=== PATIENT | male | born 1955 | race Caucasian/White ===

== ENCOUNTER 2018-12-03 12:01 | Inpatient (IN) | payer MEDICAID ==
[~2018-12-03] VITALS: Ht 182.9 cm; Wt 109.4 kg
[2018-12-03 13:59] LABS: BASOPHILS % 0.9 % (0.0-2.0); EOSINOPHILS % 2.2 % (0.0-5.0); HEMATOCRIT. 59.6 % (42.0-52.0); MEAN CORPUSCULAR HEMOGLOBIN 32.5 pg (28.0-32.0); MEAN CORPUSCULAR VOLUME 96.7 fL (80.0-94.0); MEAN PLATELET VOLUME 8.1 fl (7.4-10.4); NEUTROPHILS % 69.9 % (40.0-76.0); PLATELET 163 x1000/uL (130-400); RED BLOOD CELL COUNT 6.16 mill/uL (4.7-6.1); RED CELL DISTRIBUTION WIDTH 15.6 % (11.6-14.6)
[2018-12-03 14:06] LABS: CHLORIDE 106 mEq/L (98-107)
[2018-12-03 14:10] LABS: D-DIMER 0.75 mg/L FEU (<0.50); PARTIAL THROMBOPLASTIN TIME 28.8 sec (23.4-31.0)
[2018-12-03] MEDS ORDERED: DILTIAZEM HCL 5MG/ML 5ML VIAL IV ONE (14:30)
[2018-12-03] MEDS ORDERED: DILTIAZEM HCL 5MG/ML 5ML VIAL IV PRN ×2 (14:45→23:00)
[2018-12-03] MEDS ORDERED: CLONIDINE 0.1MG TABLET PO PRN (14:45)
[2018-12-03] MEDS ORDERED: ALBUTEROL (0.083%) 2.5MG/3ML NEB HHN STA (15:49)
[2018-12-03] MEDS ORDERED: IPRATROPIUM BROMIDE (0.02%) 0.5MG/2.5ML NEB HHN STA (15:49)
[2018-12-03] MEDS ORDERED: MAGNESIUM/ALUMINUM HYDROXIDE/SIMETHICONE 30ML UDC PO PRN (16:15)
[2018-12-03] MEDS ORDERED: DOCUSATE SODIUM 100MG CAPSULE PO PRN (16:15)
[2018-12-03] MEDS ORDERED: ONDANSETRON HCL 4MG/2ML INJ IV PRN (16:15)
[2018-12-03] MEDS ORDERED: ACETAMINOPHEN 325MG TABLET PO PRN (16:15)
[2018-12-03] MEDS ORDERED: HYDROCODONE/ACETAMINOPHEN 5/325MG TABLET PO PRN (16:15)
[2018-12-03] MEDS ORDERED: GUAIFENESIN 200MG/10ML SUGAR FREE UDC PO PRN (16:15)
[2018-12-03] MEDS ORDERED: DIPHENHYDRAMINE 50MG/ML VIAL IV PRN (16:15)
[2018-12-03 16:51] LABS: PHOSPHORUS 2.6 mg/dL (2.5-4.9)
[2018-12-03] MEDS ORDERED: DILTIAZEM HCL 125 MG in DEXT 5% WATER 100 ML IV ONE ×2 (17:30→17:45)
[2018-12-03 17:32] LABS: BG BASE EXCESS 3.3 mmol/L (-2.0-2.0); BG CARBOXYHEMOGLOBIN 4.8 % (0.5-1.5); BG DEOXYHEMOGLOBIN 8.7 % (0.0-5.0); BG FRACTION INSPIRED OXYGEN 50; BG HCO3 ACT 28.8 mmol/L (22.0-26.0); BG METHEMOGLOBIN 0.3 % (0.0-1.5); BG OXYGEN SATURATION 90.8 % (92.0-98.5); BG OXYHEMOGLOBIN 86.2 % (94.0-97.0); BG PH 7.415 (7.350-7.450); BG PO2 57.2 mmHg (75.0-100.0); BG SAMPLE SITE RIGHT BRACHIAL; BG TOTAL HEMOGLOBIN 20.6 g/dL (12.0-18.0)
[2018-12-03] MEDS ORDERED: DILTIAZEM HCL 30MG TABLET PO NR (17:45)
[2018-12-03] MEDS: DILTIAZEM HCL 30MG TABLET PO SCH (18:00)
[2018-12-03 22:55] VITALS: BP 101/71
[2018-12-04] VITALS (21 sets, daily range): BP systolic 88–142; BP diastolic 15–98
[2018-12-04] MEDS ORDERED: TAMS-11 PO (01:06)
[2018-12-04] MEDS ORDERED: FINA5TAB3 PO (01:06)
[2018-12-04] MEDS: ENOXAPARIN 120MG/0.8ML SYR SUBCUT SCH ×2 (02:59→14:48)
[2018-12-04] MEDS ORDERED: TIOT18CA3 IH (03:45)
[2018-12-04] MEDS ORDERED: CLOB15OI3 TP (03:45)
[2018-12-04] MEDS ORDERED: ATROV INH (03:45)
[2018-12-04] MEDS ORDERED: ATOR20TA65 MT (03:45)
[2018-12-04] MEDS ORDERED: CARV6.2548 PO (03:45)
[2018-12-04] MEDS ORDERED: FURO-151 PO (03:45)
[2018-12-04] MEDS ORDERED: ASPI-1393 PO (03:45)
[2018-12-04] MEDS ORDERED: LISI-604 MT (03:45)
[2018-12-04] MEDS ORDERED: AMLO5TAB88 MT (03:45)
[2018-12-04] MEDS: DILTIAZEM HCL 30MG TABLET PO SCH ×2 (06:00)
[2018-12-04] MEDS ORDERED: CLONIDINE 0.1MG TABLET PO PRN (09:45)
[2018-12-04] MEDS: DILTIAZEM HCL 90MG TABLET PO SCH ×2 (09:54→19:12)
[2018-12-04 10:12] LABS: BASOPHILS % 0.9 % (0.0-2.0); HEMATOCRIT. 53.6 % (42.0-52.0); HEMOGLOBIN. 17.9 g/dL (14.0-18.0); LYMPHOCYTES % 12.4 % (20.0-50.0); MEAN CORPUSCULAR HEMOGLOBIN 32.5 pg (28.0-32.0); MEAN CORPUSCULAR VOLUME 97.5 fL (80.0-94.0); MEAN PLATELET VOLUME 7.8 fl (7.4-10.4); MONOCYTES % 9.3 % (2.0-8.0); NEUTROPHILS % 74.4 % (40.0-76.0); PLATELET 134 x1000/uL (130-400); RED CELL DISTRIBUTION WIDTH 15.6 % (11.6-14.6)
[2018-12-04 10:27] LABS: CHLORIDE 106 mEq/L (98-107)
[2018-12-04] MEDS: FINASTERIDE 5MG TABLET PO SCH (12:48)
[2018-12-04] MEDS: TAMSULOSIN HCL 0.4MG SR CAPSULE PO SCH (12:48)
[2018-12-04] MEDS: IPRATROPIUM/ALBUTEROL 0.5-3(2.5)MG/3ML NEB HHN PRN (20:24)
[2018-12-04 21:54] LABS: *AMPHETAMINES SCREEN URINE NEGATIVE (NEGATIVE); *BARBITURATES SCREEN URINE NEGATIVE (NEGATIVE); *BENZODIAZEPINES SCREEN URINE NEGATIVE (NEGATIVE)
[2018-12-04 21:55] LABS: *COCAINE SCREEN URINE NEGATIVE (NEGATIVE); CANNABINOID URINE SCREEN NEGATIVE (NEGATIVE); METHADONE URINE SCREEN NEGATIVE (NEGATIVE); OPIATES URINE SCREEN NEGATIVE (NEGATIVE); PHENCYCLIDINE URINE SCREEN NEGATIVE (NEGATIVE)
[2018-12-05] VITALS (13 sets, daily range): BP systolic 103–137; BP diastolic 50–93
[2018-12-05] MEDS: DILTIAZEM HCL 90MG TABLET PO SCH ×4 (00:08→17:46)
[2018-12-05] MEDS: IPRATROPIUM/ALBUTEROL 0.5-3(2.5)MG/3ML NEB HHN PRN ×3 (01:08→20:53)
[2018-12-05] MEDS: ENOXAPARIN 120MG/0.8ML SYR SUBCUT SCH ×2 (02:08→15:29)
[2018-12-05] MEDS: FINASTERIDE 5MG TABLET PO SCH (09:27)
[2018-12-05] MEDS: TAMSULOSIN HCL 0.4MG SR CAPSULE PO SCH (09:28)
[2018-12-06] VITALS (16 sets, daily range): BP systolic 102–126; BP diastolic 33–88
[2018-12-06] MEDS: DILTIAZEM HCL 90MG TABLET PO SCH ×4 (00:17→17:57)
[2018-12-06] MEDS: ENOXAPARIN 120MG/0.8ML SYR SUBCUT SCH ×2 (01:53→13:22)
[2018-12-06] MEDS: IPRATROPIUM/ALBUTEROL 0.5-3(2.5)MG/3ML NEB HHN PRN (04:43)
[2018-12-06 06:32] LABS: CHLORIDE 105 mEq/L (98-107)
[2018-12-06 06:38] LABS: BASOPHILS % 0.5 % (0.0-2.0); EOSINOPHILS % 2.4 % (0.0-5.0); HEMATOCRIT. 49.9 % (42.0-52.0); HEMOGLOBIN. 16.7 g/dL (14.0-18.0); LYMPHOCYTES % 13.2 % (20.0-50.0); MEAN CORPUSCULAR HEMOGLOBIN 32.7 pg (28.0-32.0); MEAN CORPUSCULAR VOLUME 97.7 fL (80.0-94.0); MEAN PLATELET VOLUME 8.1 fl (7.4-10.4); MONOCYTES % 10.8 % (2.0-8.0); NEUTROPHILS % 73.1 % (40.0-76.0); PLATELET 121 x1000/uL (130-400); RED BLOOD CELL COUNT 5.11 mill/uL (4.7-6.1)
[2018-12-06] MEDS: TAMSULOSIN HCL 0.4MG SR CAPSULE PO SCH (08:05)
[2018-12-06] MEDS: FINASTERIDE 5MG TABLET PO SCH (08:05)
[2018-12-06 14:52] LABS: BG BASE EXCESS 3.2 mmol/L (-2.0-2.0); BG CARBOXYHEMOGLOBIN 1.1 % (0.5-1.5); BG DEOXYHEMOGLOBIN 11.3 % (0.0-5.0); BG FRACTION INSPIRED OXYGEN 21; BG HCO3 ACT 28.6 mmol/L (22.0-26.0); BG METHEMOGLOBIN 0.2 % (0.0-1.5); BG OXYGEN SATURATION 88.6 % (92.0-98.5); BG OXYHEMOGLOBIN 87.4 % (94.0-97.0); BG PCO2 45.6 mmHg (35.0-45.0); BG PH 7.415 (7.350-7.450); BG PO2 53.2 mmHg (75.0-100.0); BG SAMPLE SITE RIGHT RADIAL; BG VENT MODE ROOM AIR
[2018-12-06] MEDS: NICOTINE 21MG PATCH TD SCH (17:54)
[2018-12-06] MEDS: POTASSIUM CHLORIDE 10MEQ TABLET SR PO SCH (17:55)
[2018-12-06] MEDS: FUROSEMIDE 40MG TABLET PO SCH (17:55)
[2018-12-06] MEDS: APIXABAN 5 MG TABLET PO SCH (18:54)
[2018-12-06] MEDS: BUDESONIDE 0.5MG/2ML NEB HHN SCH (21:14)
[2018-12-06] MEDS: IPRATROPIUM BROMIDE (0.02%) 0.5MG/2.5ML NEB HHN SCH (21:14)
[2018-12-06] MEDS: GUAIFENESIN 600MG ER TABLET PO SCH (21:38)
[2018-12-07] VITALS (17 sets, daily range): BP systolic 106–159; BP diastolic 57–87
[2018-12-07] MEDS: DILTIAZEM HCL 90MG TABLET PO SCH ×4 (00:13→17:31)
[2018-12-07] MEDS: IPRATROPIUM BROMIDE (0.02%) 0.5MG/2.5ML NEB HHN SCH ×4 (02:07→20:22)
[2018-12-07] MEDS: APIXABAN 5 MG TABLET PO SCH ×2 (08:09→17:30)
[2018-12-07] MEDS: GUAIFENESIN 600MG ER TABLET PO SCH ×2 (08:09→20:18)
[2018-12-07] MEDS: POTASSIUM CHLORIDE 10MEQ TABLET SR PO SCH (08:09)
[2018-12-07] MEDS: FINASTERIDE 5MG TABLET PO SCH (08:09)
[2018-12-07] MEDS: FUROSEMIDE 40MG TABLET PO SCH (08:09)
[2018-12-07] MEDS: TAMSULOSIN HCL 0.4MG SR CAPSULE PO SCH (08:10)
[2018-12-07] MEDS: NICOTINE 21MG PATCH TD SCH (08:10)
[2018-12-07] MEDS: BUDESONIDE 0.5MG/2ML NEB HHN SCH ×2 (08:53→20:21)
[2018-12-07 08:58] LABS: BASOPHILS % 0.5 % (0.0-2.0); HEMATOCRIT. 51.3 % (42.0-52.0); HEMOGLOBIN. 17.1 g/dL (14.0-18.0); LYMPHOCYTES % 11.5 % (20.0-50.0); MEAN CORPUSCULAR HEMOGLOBIN 32.5 pg (28.0-32.0); MEAN CORPUSCULAR VOLUME 97.6 fL (80.0-94.0); MONOCYTES % 8.7 % (2.0-8.0); NEUTROPHILS % 76.3 % (40.0-76.0); PLATELET 120 x1000/uL (130-400); RED BLOOD CELL COUNT 5.26 mill/uL (4.7-6.1); RED CELL DISTRIBUTION WIDTH 15.4 % (11.6-14.6)
[2018-12-07 09:03] LABS: INR 1.2
[2018-12-07 09:04] LABS: CHLORIDE 105 mEq/L (98-107)
[2018-12-07 09:13] LABS: LDL CHOLESTEROL 54 mg/dL (5-100)
[2018-12-07 09:15] LABS: CREATINE KINASE 18 IU/L (39-308); HDL CHOLESTEROL 39 mg/dL (40-59)
[2018-12-07 09:18] LABS: CREATINE KINASE MB FRACTION < 1.0 ng/mL (0.5-3.6)
[2018-12-07] MEDS ORDERED: ASPI-1158 PO (14:11)
[2018-12-07] MEDS ORDERED: DILT90TA2 PO (15:55)
[2018-12-07] MEDS ORDERED: NICO-682 TD (15:57)
== END 2018-12-07 21:04 | disposition home or self-care (01) | DRG 133 ==
LOC: ER 12:01 → EDBEDREQ 14:59 → ENRESERV 16:43 → CANRESERV 16:43 → EDBEDREQSVC 17:26 → ENRESERV 20:10 → ER 22:52 → 8WST 12-04 00:40 → 3WST 12-04 02:09
PROVIDERS: ADMIT Internal Medicine; ATTEND Internal Medicine
PROC: 5A09357 Assistance with Respiratory Ventilation, Less than 24 Consecutive Hours, Continuous Positive Airway Pressure (ICD-10-PCS; principal; 2018-12-04)
PROC: 5A09357 Assistance with Respiratory Ventilation, Less than 24 Consecutive Hours, Continuous Positive Airway Pressure (ICD-10-PCS; 2018-12-05)
PROC: 5A09357 Assistance with Respiratory Ventilation, Less than 24 Consecutive Hours, Continuous Positive Airway Pressure (ICD-10-PCS; 2018-12-06)
PROC: 5A09357 Assistance with Respiratory Ventilation, Less than 24 Consecutive Hours, Continuous Positive Airway Pressure (ICD-10-PCS; 2018-12-07)
DX: J96.21 Acute and chronic respiratory failure with hypoxia (principal); I50.23 Acute on chronic systolic (congestive) heart failure; D69.6 Thrombocytopenia, unspecified; I42.9 Cardiomyopathy, unspecified; D75.1 Secondary polycythemia; I48.19 Other persistent atrial fibrillation; I11.0 Hypertensive heart disease with heart failure; J44.1 Chronic obstructive pulmonary disease with (acute) exacerbation; N40.0 Benign prostatic hyperplasia without lower urinary tract symptoms; J96.22 Acute and chronic respiratory failure with hypercapnia; F17.200 Nicotine dependence, unspecified, uncomplicated; G47.30 Sleep apnea, unspecified; E78.5 Hyperlipidemia, unspecified; E03.9 Hypothyroidism, unspecified; F17.210 Nicotine dependence, cigarettes, uncomplicated; F41.9 Anxiety disorder, unspecified; Z79.01 Long term (current) use of anticoagulants; Z79.899 Other long term (current) drug therapy; Z98.1 Arthrodesis status; Z71.6 Tobacco abuse counseling
CPT/HCPCS: 36415; 36600; 71045; 80048; 80061; 80305; 82375; 82550; 82553; 82805; 83735; 83880; 84100; 84443; 84484; 85379; 93005; 93306; 93970; 94640; 94660; 97161; 99291; J1200; J1650; J3490; J7060; J7611; J7620; J7626

== ENCOUNTER 2019-03-30 17:33 | Inpatient (IN) | payer MEDICAID ==
[~2019-03-30] VITALS: Ht 182.9 cm; Wt 109.8 kg
[~2019-03-30 17:33] MED LIST: APIX5TAB MT; ATOR20TA65 MT; CARV6.2548 PO; CLOB15OI3 TP; DILT90TA2 PO; FINA5TAB3 PO; FURO-151 PO; LISI-604 MT; NICO-682 TD; TAMS-11 PO; TIOT18CA3 INH
[2019-03-30 18:53] LABS: BASOPHILS % 1.1 % (0.0-2.0); EOSINOPHILS % 3.1 % (0.0-5.0); HEMATOCRIT. 51.3 % (42.0-52.0); HEMOGLOBIN. 17.3 g/dL (14.0-18.0); LYMPHOCYTES % 13.2 % (20.0-50.0); MEAN CORPUSCULAR HEMOGLOBIN 32.9 pg (28.0-32.0); MEAN CORPUSCULAR VOLUME 97.6 fL (80.0-94.0); MEAN PLATELET VOLUME 7.7 fl (7.4-10.4); MONOCYTES % 10.9 % (2.0-8.0); NEUTROPHILS % 71.7 % (40.0-76.0); PLATELET 173 x1000/uL (130-400); RED BLOOD CELL COUNT 5.26 mill/uL (4.7-6.1); RED CELL DISTRIBUTION WIDTH 14.9 % (11.6-14.6)
[2019-03-30 18:59] LABS: CHLORIDE 108 mEq/L (98-107)
[2019-03-30] MEDS ORDERED: CARVEDILOL 6.25 MG TABLET PO ONE (20:00)
[2019-03-30] MEDS ORDERED: DILTIAZEM HCL 5MG/ML 5ML VIAL IV ONE (20:00)
[2019-03-30] MEDS ORDERED: DILTIAZEM HCL 90MG TABLET PO ONE (20:00)
[2019-03-30] MEDS ORDERED: FUROSEMIDE 40MG/4ML VIAL IVP ONE (20:00)
[2019-03-30] MEDS ORDERED: IPRATROPIUM/ALBUTEROL 0.5-3(2.5)MG/3ML NEB NEB PRN (22:00)
[2019-03-30] MEDS ORDERED: HYDROCODONE/ACETAMINOPHEN 5/325MG TABLET PO PRN (22:00)
[2019-03-30] MEDS ORDERED: MAGNESIUM/ALUMINUM HYDROXIDE/SIMETHICONE 30ML UDC PO PRN (22:00)
[2019-03-30] MEDS ORDERED: DILTIAZEM HCL 30MG TABLET PO PRN (22:00)
[2019-03-30] MEDS ORDERED: CLONIDINE 0.1MG TABLET PO PRN (22:00)
[2019-03-30] MEDS ORDERED: ONDANSETRON HCL 4MG/2ML INJ IV PRN (22:00)
[2019-03-30] MEDS ORDERED: GUAIFENESIN 200MG/10ML SUGAR FREE UDC PO PRN (22:00)
[2019-03-30] MEDS ORDERED: MORPHINE SULFATE 2 MG/ML CPJ (NOT FOR IM USE) IV PRN (22:30)
[2019-03-30 23:21] LABS: CREATINE KINASE 34 IU/L (39-308)
[2019-03-30 23:22] LABS: CREATINE KINASE MB FRACTION 1.2 ng/mL (0.5-3.6)
[2019-03-30 23:40] VITALS: BP 133/76
[2019-03-31] VITALS: BP 133/76
[2019-03-31] MEDS ORDERED: DILT120T13 PO (01:48)
[2019-03-31] MEDS: APIXABAN 5 MG TABLET PO SCH ×2 (02:30→16:41)
[2019-03-31 04:00] VITALS: BP 128/83
[2019-03-31 07:49] LABS: CHLORIDE 105 mEq/L (98-107)
[2019-03-31 08:00] VITALS: BP 144/97
[2019-03-31 08:02] LABS: CREATINE KINASE 30 IU/L (39-308); LDL CHOLESTEROL 43 mg/dL (5-100)
[2019-03-31 08:03] LABS: HDL CHOLESTEROL 39 mg/dL (40-59)
[2019-03-31 08:07] LABS: CREATINE KINASE MB FRACTION 1.1 ng/mL (0.5-3.6)
[2019-03-31 08:13] LABS: BASOPHILS % 0.7 % (0.0-2.0); EOSINOPHILS % 2.8 % (0.0-5.0); HEMATOCRIT. 49.2 % (42.0-52.0); LYMPHOCYTES % 13.5 % (20.0-50.0); MEAN CORPUSCULAR VOLUME 98.5 fL (80.0-94.0); MONOCYTES % 10.8 % (2.0-8.0); NEUTROPHILS % 72.2 % (40.0-76.0); RED CELL DISTRIBUTION WIDTH 14.9 % (11.6-14.6)
[2019-03-31] MEDS: CARVEDILOL 6.25 MG TABLET PO SCH ×2 (09:11→20:47)
[2019-03-31] MEDS: TAMSULOSIN HCL 0.4MG SR CAPSULE PO SCH (09:11)
[2019-03-31] MEDS: FINASTERIDE 5MG TABLET PO SCH (09:11)
[2019-03-31] MEDS: FUROSEMIDE 40MG/4ML VIAL IV SCH (09:12)
[2019-03-31 10:09] LABS: MEAN PLATELET VOLUME 7.7 fl (7.4-10.4); PLATELET 177 x1000/uL (130-400)
[2019-03-31 12:00] VITALS: BP 118/79
[2019-03-31 16:00] VITALS: BP 113/79
[2019-03-31] MEDS: NICOTINE 21MG PATCH TD SCH (16:42)
[2019-03-31 20:00] VITALS: BP 125/85
[2019-03-31] MEDS: IPRATROPIUM/ALBUTEROL 0.5-3(2.5)MG/3ML NEB HHN SCH (20:52)
[2019-03-31] MEDS: BUDESONIDE 0.5MG/2ML NEB HHN SCH (20:55)
[2019-04-01] VITALS (7 sets, daily range): BP systolic 97–135; BP diastolic 56–85
[2019-04-01] MEDS: IPRATROPIUM/ALBUTEROL 0.5-3(2.5)MG/3ML NEB HHN SCH ×2 (01:06→08:00)
[2019-04-01] MEDS: BUDESONIDE 0.5MG/2ML NEB HHN SCH ×2 (08:01→20:38)
[2019-04-01] MEDS: FINASTERIDE 5MG TABLET PO SCH (08:22)
[2019-04-01] MEDS: APIXABAN 5 MG TABLET PO SCH ×2 (08:29→18:28)
[2019-04-01] MEDS: FUROSEMIDE 40MG/4ML VIAL IV SCH (08:29)
[2019-04-01] MEDS: NICOTINE 21MG PATCH TD SCH (08:30)
[2019-04-01] MEDS: TAMSULOSIN HCL 0.4MG SR CAPSULE PO SCH (08:33)
[2019-04-01] MEDS: CARVEDILOL 6.25 MG TABLET PO SCH (08:42)
[2019-04-01] MEDS: DILTIAZEM HCL 60MG TABLET PO SCH ×2 (12:58→18:27)
[2019-04-01] MEDS ORDERED: DILTIAZEM HCL 30MG TABLET PO SCH (13:00)
[2019-04-01] MEDS: IPRATROPIUM BROMIDE (0.02%) 0.5MG/2.5ML NEB HHN SCH ×2 (15:05→20:38)
[2019-04-01] MEDS ORDERED: CARVEDILOL 3.125 MG TABLET PO SCH (21:00)
[2019-04-01] MEDS: CARVEDILOL 3.125 MG TABLET PO SCH (21:00)
[2019-04-02] VITALS: BP 122/80
[2019-04-02] MEDS: IPRATROPIUM BROMIDE (0.02%) 0.5MG/2.5ML NEB HHN SCH ×4 (01:06→19:54)
[2019-04-02 04:00] VITALS: BP 92/75
[2019-04-02] MEDS: DILTIAZEM HCL 60MG TABLET PO SCH ×5 (06:29→23:06)
[2019-04-02 06:57] LABS: BASOPHILS % 0.4 % (0.0-2.0); EOSINOPHILS % 1.4 % (0.0-5.0); HEMATOCRIT. 49.8 % (42.0-52.0); HEMOGLOBIN. 17.2 g/dL (14.0-18.0); LYMPHOCYTES % 12.1 % (20.0-50.0); MEAN CORPUSCULAR HEMOGLOBIN 33.9 pg (28.0-32.0); MEAN CORPUSCULAR VOLUME 98.2 fL (80.0-94.0); MEAN PLATELET VOLUME 7.8 fl (7.4-10.4); MONOCYTES % 11.8 % (2.0-8.0); NEUTROPHILS % 74.3 % (40.0-76.0); PLATELET 162 x1000/uL (130-400); RED BLOOD CELL COUNT 5.07 mill/uL (4.7-6.1); RED CELL DISTRIBUTION WIDTH 14.4 % (11.6-14.6)
[2019-04-02] MEDS: BUDESONIDE 0.5MG/2ML NEB HHN SCH ×2 (07:35→19:55)
[2019-04-02 08:00] VITALS: BP 96/72
[2019-04-02 08:13] LABS: CHLORIDE 105 mEq/L (98-107)
[2019-04-02 08:19] LABS: PHOSPHORUS 3.4 mg/dL (2.5-4.9)
[2019-04-02] MEDS: FINASTERIDE 5MG TABLET PO SCH (08:23)
[2019-04-02] MEDS: DOCUSATE SODIUM 100MG CAPSULE PO PRN ×2 (08:23→17:02)
[2019-04-02] MEDS: APIXABAN 5 MG TABLET PO SCH ×2 (08:23→17:02)
[2019-04-02] MEDS: FUROSEMIDE 40MG/4ML VIAL IV SCH (08:23)
[2019-04-02] MEDS: TAMSULOSIN HCL 0.4MG SR CAPSULE PO SCH (08:23)
[2019-04-02] MEDS: CARVEDILOL 3.125 MG TABLET PO SCH ×2 (08:24→23:05)
[2019-04-02] MEDS: NICOTINE 21MG PATCH TD SCH (08:24)
[2019-04-02 12:00] VITALS: BP 100/63
[2019-04-02 16:00] VITALS: BP 99/71
[2019-04-02 20:00] VITALS: BP 111/70
[2019-04-03] VITALS (7 sets, daily range): BP systolic 94–122; BP diastolic 54–79
[2019-04-03] MEDS: IPRATROPIUM BROMIDE (0.02%) 0.5MG/2.5ML NEB HHN SCH ×4 (02:12→20:52)
[2019-04-03] MEDS: DILTIAZEM HCL 60MG TABLET PO SCH ×4 (05:37→23:12)
[2019-04-03] MEDS: BUDESONIDE 0.5MG/2ML NEB HHN SCH ×2 (08:28→20:52)
[2019-04-03] MEDS: CARVEDILOL 3.125 MG TABLET PO SCH ×2 (09:00→23:13)
[2019-04-03] MEDS: APIXABAN 5 MG TABLET PO SCH ×2 (09:29→17:28)
[2019-04-03] MEDS: TAMSULOSIN HCL 0.4MG SR CAPSULE PO SCH (09:29)
[2019-04-03] MEDS: FINASTERIDE 5MG TABLET PO SCH (09:29)
[2019-04-03] MEDS: FUROSEMIDE 40MG/4ML VIAL IV SCH (09:29)
[2019-04-03] MEDS: NICOTINE 21MG PATCH TD SCH (09:30)
[2019-04-04] VITALS: BP 110/75
[2019-04-04 04:00] VITALS: BP 105/61
[2019-04-04] MEDS: DOCUSATE SODIUM 100MG CAPSULE PO PRN (05:52)
[2019-04-04] MEDS: DILTIAZEM HCL 60MG TABLET PO SCH (05:53)
[2019-04-04 08:00] VITALS: BP 112/79
[2019-04-04] MEDS: IPRATROPIUM BROMIDE (0.02%) 0.5MG/2.5ML NEB HHN SCH (08:24)
[2019-04-04] MEDS: FUROSEMIDE 40MG/4ML VIAL IV SCH (09:09)
[2019-04-04] MEDS: TAMSULOSIN HCL 0.4MG SR CAPSULE PO SCH (09:10)
[2019-04-04] MEDS: NICOTINE 21MG PATCH TD SCH (09:10)
[2019-04-04] MEDS: APIXABAN 5 MG TABLET PO SCH (09:11)
[2019-04-04] MEDS: FINASTERIDE 5MG TABLET PO SCH (09:11)
[2019-04-04] MEDS: CARVEDILOL 3.125 MG TABLET PO SCH (09:11)
[2019-04-04] MEDS ORDERED: DILTIAZEM HCL 120MG CAPSULE CD 24HR PO SCH (10:30)
[2019-04-04 10:50] VITALS: BP 112/79
[2019-04-04 12:00] VITALS: BP 107/71
== END 2019-04-04 14:40 | disposition home or self-care (01) | DRG 133 ==
LOC: ER 17:33 → 5WST 20:43 → ENRESERV 22:01
PROVIDERS: ADMIT Hospitalist; ATTEND Hospitalist
DX: J96.00 Acute respiratory failure, unspecified whether with hypoxia or hypercapnia (principal); I50.23 Acute on chronic systolic (congestive) heart failure; E87.5 Hyperkalemia; I42.0 Dilated cardiomyopathy; J44.1 Chronic obstructive pulmonary disease with (acute) exacerbation; I11.0 Hypertensive heart disease with heart failure; E78.5 Hyperlipidemia, unspecified; F10.10 Alcohol abuse, uncomplicated; E78.00 Pure hypercholesterolemia, unspecified; E05.90 Thyrotoxicosis, unspecified without thyrotoxic crisis or storm; F17.210 Nicotine dependence, cigarettes, uncomplicated; F41.9 Anxiety disorder, unspecified; I48.20 Chronic atrial fibrillation, unspecified; N40.0 Benign prostatic hyperplasia without lower urinary tract symptoms; Z79.01 Long term (current) use of anticoagulants; Z79.899 Other long term (current) drug therapy; Z87.01 Personal history of pneumonia (recurrent); Z71.6 Tobacco abuse counseling
CPT/HCPCS: 36415; 71045; 80048; 80053; 80061; 82550; 82553; 83036; 83735; 83880; 84100; 84132; 84439; 84484; 85025; 85379; 93005; 93306; 93970; 94640; 99291; J1940; J3490; J7626